=== PATIENT | male | born 1995 | race Caucasian/White ===

== ENCOUNTER 2021-06-01 19:14 | Emergency (ER) | payer OTHER, BC | END 2021-06-01 21:35 | disposition home or self-care (01) | LOC: ER1 19:14 | DX: S01.01XA Laceration without foreign body of scalp, initial encounter (principal); V86.59XA Driver of other special all-terrain or other off-road motor vehicle injured in nontraffic accident, initial encounter; Y92.410 Unspecified street and highway as the place of occurrence of the external cause | CPT/HCPCS: 12002; 70450; 71045; 99284 ==